=== PATIENT | male | born 1955 | race Caucasian/White ===

== ENCOUNTER 2017-04-13 08:01 | Emergency (ER) | payer BC, OTHER ==
[~2017-04-13 08:01] MED LIST: LISI-646 PO; VICODIN
[2017-04-13] MEDS ORDERED: SODIUM BICARBONATE 8.4% INJ 50ML SYRINGE IV ONE (08:02)
[2017-04-13] MEDS ORDERED: EPINEPHrine HCL 1 MG/10 ML SYRG IV ONE (08:02)
[2017-04-13 08:14] VITALS: BP 0/0
== END 2017-04-13 11:05 | disposition expired ==
LOC: EDBD 08:01 → ER 08:01
DX: I46.9 Cardiac arrest, cause unspecified (principal); R41.82 Altered mental status, unspecified; I10 Essential (primary) hypertension; J44.9 Chronic obstructive pulmonary disease, unspecified; F17.210 Nicotine dependence, cigarettes, uncomplicated; I25.2 Old myocardial infarction
CPT/HCPCS: 31500; 92950; 99285; J0171